=== PATIENT | male | born 1980 ===

== ENCOUNTER 2018-01-03 11:42 | Emergency (ER) | payer OTHER ==
[2018-01-03 11:46] VITALS: BMI 28.8
[2018-01-03 11:48] VITALS: O2SAT 100
--- NOTE | 2018-01-03 12:35 | ED PDOC ---
HPI: Abdomen Time Seen by Provider: 01/03/18 12:04 Chief Complaint (Nursing): Abdominal Pain Chief Complaint (Provider): Suprapubic Pain History Per: Patient History/Exam Limitations: no limitations Onset/Duration Of Symptoms: Days Outside of [place] travel?: No Current Symptoms Are (Timing): Still Present Severity: None Location Of Pain/Discomfort: Suprapubic Quality Of Discomfort: "Pain" Associated Symptoms: Nausea, Vomiting, Urinary Symptoms (dysuria, frequency). denies: Loss Of Appetite Exacerbating Factors: None Alleviating Factors: None Additional Complaint(s): 37 year old male presents to the emergency department complaining of suprapubic pain which began yesterday. Patient states that his symptoms are associated with dysuria and frequency. Other rivera patient has a normal appetite and is eating well. Reports (-) vomiting, (-) diarrhea, (-) fever, (-) melena, (-) hematochezia, (-) polydypsia, (-) Polyphasia. Has no history of prior abdominal surgery. PMD: Non [facility] Provider, Past Medical History Reviewed: Historical Data, Nursing Documentation, Vital Signs Vital Signs: Last Vital Signs Temp 97.5 F L 01/03/18 11:46 Pulse 92 H 01/03/18 11:46 Resp 20 01/03/18 11:46 BP 119/78 01/03/18 11:46 Pulse Ox 100 01/03/18 14:04 - Medical History PMH: No Chronic Diseases - Surgical History Surgical History: No Surg Hx - Family History Family History: States: Unknown Family Hx - Social History Current smoker - smoking cessation education provided: No Ex-Smoker (has not smoked in the last 12 months): Yes Alcohol: None Drugs: Denies - Home Medications Home Medications: Ambulatory Orders Medication Instructions Recorded Ciprofloxacin [Cipro] 500 mg PO BID #14 tab 01/03/18 - Allergies Allergies/Adverse Reactions: Allergies Allergy/AdvReac Type Severity Reaction Status Date / Time No Known Allergies Allergy Verified 01/03/18 11:58 Review of Systems Gastrointestinal: Positive for: Abdominal Pain (suprapubic') Genitourinary Male: Positive for: Dysuria, Frequency Physical Exam - Reviewed Nursing Documentation Reviewed: Yes Vital Signs Reviewed: Yes - Physical Exam Appears: Positive for: Well, Non-toxic, No Acute Distress Head Exam: Positive for: ATRAUMATIC, NORMAL INSPECTION, NORMOCEPHALIC Skin: Positive for: Normal Color, Warm, Dry. Negative for: Rash Eye Exam: Positive for: Normal appearance, EOMI, PERRL. Negative for: Nystagmus ENT: Positive for: Normal ENT Inspection. Negative for: Nasal Congestion, Tonsillar Exudate, Tonsillar Swelling Neck: Positive for: Normal, Painless ROM, Supple Cardiovascular/Chest: Positive for: Regular Rate, Rhythm, Chest Non Tender. Negative for: Tachycardia Respiratory: Positive for: Normal Breath Sounds. Negative for: Rales, Rhonchi, Wheezing, Respiratory Distress Gastrointestinal/Abdominal: Positive for: Bowel Sounds, Soft, Tenderness (Mild suprapubic tenderness). Negative for: Mass, Guarding, Rebound Back: Positive for: Normal Inspection. Negative for: L CVA Tenderness, R CVA Tenderness Extremity: Positive for: Normal ROM. Negative for: Tenderness, Deformity, Swelling Neurologic/Psych: Positive for: Alert, Oriented, Gait - Laboratory Results Result Diagrams: 01/03/18 12:35 01/03/18 12:35 - ECG O2 Sat by Pulse Oximetry: 100 (RA) Pulse Ox Interpretation: Normal Medical Decision Making Medical Decision Makin Initial Impression r/o UTI unlikely appendicitis or Colitis Initial Plan: * CMP * Lipase * CBC * Toradol 15mg IVP * Urine Culture * Urinalysis * Reevaluation Labs reviewed, patient noted to have a UTI, cipro 400 mg IV ordered. On re-evaluation, patient reports no fever, back pain, N/V. On exam, patient remains AAOx3, in no acute distress. On exam, abdomen soft, non-tender, no CVA tenderness. Diagnostic results d/w the patient in great detail. Diagnosis of UTI d/w the patient. Based on history, exam and diagnostic results, plan will be for outpatient follow up. Patient instructed to follow-up with pmd / referral provided / the clinic in 1- 2 days without fail. Advised to take medication as prescribed. Return to the emergency room at any time for any new or worsening symptoms. Patient states he fully agrees with and understands discharge instructions. States that he agrees with the plan and disposition. Verbalized and repeated discharge instructions and plan. I have given the patient opportunity to ask any additional questions. Documented by Marjorie Joiner acting as a scribe for Leta Grewal PA-C. All medical record entries made by the Scribe were at my direction and personally dictated by me. I have reviewed the chart and agree that the record accurately reflects my personal performance of the history, physical exam, medical decision making, and the department course for this patient. I have also personally directed, reviewed, and agree with the discharge instructions and disposition. Disposition - Clinical Impression Clinical Impression: Abdominal pain, UTI (urinary tract infection) - Patient ED Disposition Is Patient to be Admitted: No Counseled Patient/Family Regarding: Studies Performed, Diagnosis, Need For Followup, Rx Given - Disposition Referrals: Félix Oh DO [Medical Doctor] - [facility] [place] [Outside] Disposition: Routine/Home Disposition Time: 14:00 Condition: STABLE Additional Instructions: Siddharth por dejarnos atenderlo hoy. Usted fue tratado por UTI. La atencin m dica de emergencia que recibi hoy estaba dirigida a trinh sntomas agudos. Si le prescribieron algn medicamento, llnelo y tome segn las indicaciones. Trinh s ntomas pueden tardar varios shaffer en resolverse. Regrese al Departamento de Emergencia si trinh sntomas empeoran, no mejoran o si tiene algn otro problema. Comunquese con vivas mdico en 2 shaffer para casey reevaluacin y seguimiento / o llame a isabel de los mdicos / clnicas a los que cobian referido y que figura en el formulario de Informacin de visitas del paciente que se incluye en vivas paquete de ernesto. Traiga todos los documentos que recibi al momento del ernesto junto con los medicamentos que est tomando en vivas visita de seguimiento. Nuestro tratamiento no puede reemplazar la atencin mdica en curso por parte de un proveedor de atencin primaria (PCP) fuera del departamento de emergencias. Siddharth por permitir que el equipo de [employer] sea parte de vivas cuidado hoy. Si se realiz casey prueba de cultivo de orina: lo llamaremos para informarle cualquier resultado positivo Prescriptions: Ciprofloxacin [Cipro] 500 mg PO BID #14 tab Instructions: Urinary Tract Infections in Adults, Acute Abdomen (Belly Pain), Adult (DC) Forms: [employer] (Latvian) Print Language: VIETNAMESE
[2018-01-03 12:59] LABS: BASO % 0.4 % (0.0-2.0); EOS # 0.1 K/uL (0.0-0.7); EOS % 1.3 % (0.0-4.0); HEMOGLOBIN 14.2 g/dL (12.0-18.0); LYMPH # 1.1 K/uL (1.0-4.3); LYMPH % 9.9 % (20.0-40.0); MEAN CELL VOLUME 84.1 fl (80.0-94.0); MEAN CORPUSCULAR HEMOGLOBIN 29.3 pg (27.0-31.0); MEAN CORPUSCULAR HGB CONC 34.8 g/dL (33.0-37.0); MEAN PLATELET VOLUME 7.6 fl (7.2-11.7); MONO # 0.8 K/uL (0.0-0.8); MONO % 7.1 % (0.0-10.0); NEUT # 9.3 K/uL (1.8-7.0); NEUT % 81.3 % (50.0-75.0); NRBC % 0.2 % (0.0-0.0); PLATELET COUNT 354 K/uL (130-400); RBC 4.86 Mil/uL (4.40-5.90); RED CELL DISTRIBUTION WIDTH 12.9 % (11.5-14.5); WHITE BLOOD COUNT 11.4 K/uL (4.8-10.8)
[2018-01-03 13:05] LABS: URINE BACTERIA OCC (<OCC); URINE BILIRUBIN NEGATIVE (NEGATIVE); URINE BLOOD LARGE (NEGATIVE); URINE CLARITY TURBID (Clear); URINE COLOR YELLOW (YELLOW); URINE GLUCOSE (UA) NEG (Normal); URINE LEUKOCYTE ESTERASE LARGE Leu/uL (Negative); URINE PROTEIN 30 mg/dL (NEGATIVE); URINE UROBILINOGEN 0.2-1.0 mg/dL (0.2-1.0); WBC CLUMPS FEW /hpf
[2018-01-03 13:08] LABS: ALB/GLOB RATIO 1.2 (1.0-2.1); ALBUMIN 4.3 g/dL (3.5-5.0); ALT/SGPT 52 U/L (21-72); AST/SGOT 37 U/L (17-59); BLOOD UREA NITROGEN 7 mg/dl (9-20); CALCIUM 9.6 mg/dL (8.4-10.2); GFR AFRICAN-AMERICAN > 60; GFR NON-AFRICAN AMERICAN > 60; LIPASE 51 U/L (23-300)
[2018-01-03] MEDS ORDERED: Ciprofloxacin 400mg/200ml D5W 400 MG/200 ML BAG IVPB STA (13:54)
[2018-01-03 14:31] LABS: EOSINOPHIL 1 % (0-7); LYMPHOCYTE 12 % (20-50); MONOCYTE 2 % (0-10); NEUTROPHIL 84 % (42-75); PLATELET ESTIMATE NORMAL (NORMAL); REACTIVE LYMPHOCYTES 1 % (0-0); TOTAL CELLS COUNTED 100
[2018-01-03 15:30] VITALS: BP 133/64; PULSE 79; RESP 18; TEMP 98.1
== END 2018-01-03 15:20 | disposition home or self-care (01) ==
LOC: H.ER 11:42
DX: N39.0 Urinary tract infection, site not specified (principal)
CPT/HCPCS: 80053; 81003; 83690; 85025; 87086; 96365; 96375; 99283; J0744; J1885